=== PATIENT | male | born 1955 | race Caucasian/White ===

== ENCOUNTER 2017-04-11 13:43 | Inpatient (IN) | payer BC, MEDICARE ==
[2017-04-11] VITALS (7 sets, daily range): BP systolic 125–168; BP diastolic 77–110
[~2017-04-11] VITALS: Ht 186.7 cm; Wt 115.4 kg
[~2017-04-11 13:43] MED LIST: AMIO200T42 PO; APIX5TAB PO; FURO-93 PO; LISI-167 PO; METO2.5T PO; METO25TA35 PO; POTA10TA12 PO
[2017-04-11] MEDS ORDERED: NITROGLYCERIN OINT 2%, 1GM TP ONE ×2 (14:29→14:30)
[2017-04-11] MEDS ORDERED: SODIUM CHLORIDE FLUSH 10ML SYR IVF ONE (14:30)
[2017-04-11 14:41] LABS: HEMATOCRIT 55.6 % (39.2-51.8); HEMOGLOBIN 18.5 g/dL (13.7-18.0); WHITE BLOOD COUNT 8.2 x10^3/uL (3.4-10)
[2017-04-11 14:47] LABS: BLOOD UREA NITROGEN 18 mg/dL (7-18)
[2017-04-11 14:52] LABS: ASPARTATE AMINO TRANSFERASE 22 U/L (15-37)
[2017-04-11 14:54] LABS: IS PT STATUS REG ER OR PRE ER? YES
[2017-04-11] MEDS ORDERED: ENALAPRILAT 1.25 MG/ML, 2ML IVPush PRN (16:30)
[2017-04-11] MEDS ORDERED: ENOXAPARIN 40 MG/0.4 ML SQ SCH (16:30)
[2017-04-11] MEDS ORDERED: DOCUSATE 100 MG CAPSULE PO PRN (16:30)
[2017-04-11] MEDS ORDERED: HYDROcodone/APAP 5/325 TABLET PO PRN (16:30)
[2017-04-11] MEDS ORDERED: ONDANSETRON 2MG/ML, 2ML IVPush PRN (16:30)
[2017-04-11] MEDS ORDERED: BISACODYL 10 MG SUPP PR PRN (16:30)
[2017-04-11] MEDS ORDERED: POLYETHYLENE GLYCOL 17 GM PACKET PO PRN (16:30)
[2017-04-11] MEDS ORDERED: morphine SULFATE 10 MG/ML, 1ML IVPush PRN (16:30)
[2017-04-11] MEDS ORDERED: LABETALOL 5MG/ML, 20ML IVPush PRN (16:30)
[2017-04-11] MEDS ORDERED: ACETAMINOPHEN 325 MG TABLET PO PRN (16:30)
[2017-04-11] MEDS: ASPIRIN 325 MG TABLET PO SCH (16:53)
[2017-04-11] MEDS ORDERED: ATOR40TA78 PO (17:01)
[2017-04-11 18:07] LABS: IS PT STATUS REG ER OR PRE ER? NO
[2017-04-11] MEDS: POTASSIUM CHLORIDE 20 MEQ TAB.ER.PRT PO SCH (20:16)
[2017-04-11] MEDS: METOPROLOL TARTRATE 25 MG TABLET PO SCH (20:16)
[2017-04-11] MEDS ORDERED: NITROGLYCERIN 0.4 MG/SPRAY SL PRN (20:30)
[2017-04-11] MEDS: NITROGLYCERIN 0.4 MG BOTTLE (25 TABS) SL PRN ×2 (20:47→21:42)
[2017-04-11] MEDS ORDERED: ATORVASTATIN 80 MG TABLET PO SCH (21:00)
[2017-04-11 23:05] LABS: IS PT STATUS REG ER OR PRE ER? NO
[2017-04-12 01:37] VITALS: BP 119/84
[2017-04-12 04:12] VITALS: BP 136/101
[2017-04-12] MEDS: NITROGLYCERIN 0.4 MG BOTTLE (25 TABS) SL PRN (04:13)
[2017-04-12 04:16] VITALS: BP 141/96
[2017-04-12] MEDS: ASPIRIN 325 MG TABLET PO SCH (05:18)
[2017-04-12] MEDS: NITROGLYCERIN OINT 2%, 1GM TP SCH ×2 (05:19→11:55)
[2017-04-12 05:55] LABS: HEMATOCRIT 55.2 % (39.2-51.8); HEMOGLOBIN 18.4 g/dL (13.7-18.0); WHITE BLOOD COUNT 7.3 x10^3/uL (3.4-10)
[2017-04-12 06:01] LABS: BLOOD UREA NITROGEN 15 mg/dL (7-18)
[2017-04-12 06:07] LABS: IS PT STATUS REG ER OR PRE ER? NO
[2017-04-12 06:51] VITALS: BP 137/82
[2017-04-12] MEDS ORDERED: LISINOPRIL 10 MG TABLET PO SCH (09:00)
[2017-04-12] MEDS: POTASSIUM CHLORIDE 20 MEQ TAB.ER.PRT PO SCH (09:45)
[2017-04-12] MEDS: METOPROLOL TARTRATE 25 MG TABLET PO SCH (09:45)
[2017-04-12] MEDS ORDERED: REGADENOSON 0.4 MG/5 ML SYRINGE ONE (10:12)
[2017-04-12 11:53] VITALS: BP 155/102
[2017-04-12] MEDS ORDERED: LORazepam 1MG TABLET PO PRN (13:30)
== END 2017-04-12 15:35 | disposition left against medical advice (07) | DRG 291 ==
LOC: ED 15:18 → EDIP 15:19 → ED 15:20 → 5SO 16:08
PROVIDERS: ADMIT Hospitalist; ATTEND Hospitalist
DX: I11.0 Hypertensive heart disease with heart failure (principal); J96.01 Acute respiratory failure with hypoxia; I47.2 Ventricular tachycardia; I31.3 Pericardial effusion (noninflammatory); D75.1 Secondary polycythemia; I24.8 Other forms of acute ischemic heart disease; I50.41 Acute combined systolic (congestive) and diastolic (congestive) heart failure; I48.91 Unspecified atrial fibrillation; Z53.21 Procedure and treatment not carried out due to patient leaving prior to being seen by health care provider; E66.9 Obesity, unspecified; Z68.33 Body mass index [BMI] 33.0-33.9, adult; G47.33 Obstructive sleep apnea (adult) (pediatric); I44.0 Atrioventricular block, first degree; Z80.41 Family history of malignant neoplasm of ovary; Z82.49 Family history of ischemic heart disease and other diseases of the circulatory system; Z87.891 Personal history of nicotine dependence
CPT/HCPCS: 36415; 71010; 78452; 80048; 80053; 80061; 83735; 83880; 84484; 85025; 93005; 93017; 93306; 99285; J1650; J2785; A9502; C9898